=== PATIENT | male | born 1995 | race Caucasian/White ===

== ENCOUNTER 2016-09-05 16:44 | Inpatient (IN) | payer OTHER ==
[~2016-09-05] VITALS: Ht 177.8 cm; Wt 63.1 kg
[2016-09-05 17:11] LABS: HEMATOCRIT 48.9 % (38.0-50.0); MCH 30.4 PG (29.0-34.0); MCHC 34.8 G/DL (30.0-36.0); MCV 87.5 FL (86-99); MEAN PLAT.VOLUME 9.4 uM^3 (9.0-12.4); PLATELET COUNT 380 K/uL (156-360); RBC DIS.WIDTH-CV 12.6 % (11.8-14.6); RBC DIS.WIDTH-SD 40.9 % (39-53); RED BLOOD COUNT 5.59 M/uL (4.00-5.50); WHITE BLOOD COUNT 8.4 K/uL (4.1-10.2)
[2016-09-05 17:40] LABS: CHLORIDE 108 mEq/L (99-109); POTASSIUM 3.6 mEq/L (3.7-5.4); SODIUM 138 mEq/L (136-147)
[2016-09-05 17:42] LABS: GLUCOSE 112 mg/dL (70-99)
[2016-09-05 17:43] LABS: ANION GAP 12 MEQ/L (2-14)
[2016-09-05 17:46] LABS: GFR ESTIMATE (CALCULATED) > 59 mL/min/
[2016-09-05 17:47] LABS: UREA NITROGEN (BUN) 15 mg/dL (9-23)
[2016-09-05 18:31] LABS: ADD MIUA? NO; BILIRUBIN NEGATIVE; BLOOD NEGATIVE; COLOR YELLOW ((YELLOW)); GLUCOSE (STRIP) NEGATIVE; KETONES NEGATIVE; LEUKOCYTES NEGATIVE; NITRITE NEGATIVE; PROTEIN (STRIP) NEGATIVE; SPECIFIC GRAVITY 1.011 (1.000-1.030); UCUL ADDED? NO; UROBILINOGEN 0.2 MG/DL (0.2-1.0)
[2016-09-05 18:37] LABS: AMPHETAMINE NEGATIVE (500 ng/mL); BARBITURATES PRESUMPTIVE POSITIVE (200 ng/mL); BENZODIAZEPINES PRESUMPTIVE POSITIVE (150 ng/mL); COCAINE NEGATIVE (150 ng/mL); INTERNAL CONTROLS VALID? YES; METHADONE NEGATIVE (200 ng/mL); METHAMPHETAMINE NEGATIVE (500 ng/mL); OPIATES (MORPHINE) NEGATIVE (100 ng/mL); OXYCODONE NEGATIVE (100 ng/mL); PHENCYCLIDINE NEGATIVE (25 ng/mL); PROPOXYPHENE NEGATIVE (300 ng/mL); THC CANNABINOIDS PRESUMPTIVE POSITIVE (50 ng/mL); TRICYCLIC ANTIDEPRESSANTS NEGATIVE (300 ng/mL)
[2016-09-05 18:38] LABS: ADD MEDTOX COMMENT Y
[2016-09-05 19:14] LABS: BENZODIAZEPINES QUANT VALUE 0 NG/ML; BENZODIAZEPINES, URINE SCREEN Negative (200 ng/mL)
[2016-09-05] MEDS ORDERED: TOPIRAMATE100 MG PO (20:14)
[2016-09-05] MEDS ORDERED: ONE-A-DAY MEN'1 EACH PO (20:15)
[2016-09-05 20:32] VITALS: BP 140/76
[2016-09-06 08:20] VITALS: BP 125/80
[2016-09-06 15:42] VITALS: BP 127/72
[2016-09-07 07:33] VITALS: BP 133/64
[2016-09-07 15:30] VITALS: BP 142/85
[2016-09-08 08:01] VITALS: BP 133/60
[2016-09-08 16:25] VITALS: BP 133/76
[2016-09-09 07:39] VITALS: BP 149/73
[2016-09-09 15:23] VITALS: BP 140/79
[2016-09-10 08:02] VITALS: BP 137/65
[2016-09-10 15:49] VITALS: BP 146/86
[2016-09-11 07:53] VITALS: BP 124/65
[2016-09-11 15:36] VITALS: BP 156/86
[2016-09-11 20:59] VITALS: BP 138/89
[2016-09-12 07:27] VITALS: BP 123/60
[2016-09-12] MEDS ORDERED: QUETIAPINE FUMA25 MG PO (09:26)
[2016-09-12] MEDS ORDERED: ESCITALOPRAM OX10 MG PO (09:26)
[2016-09-12] MEDS ORDERED: PRAZOSIN HCL1 MG PO (09:26)
== END 2016-09-12 10:22 | disposition home or self-care (01) | DRG 885 ==
LOC: EME 16:44 → EDOF 19:40 → 1WEST 19:40
PROVIDERS: Emergency Medicine
DX: F33.2 Major depressive disorder, recurrent severe without psychotic features (principal); R45.851 Suicidal ideations; G40.909 Epilepsy, unspecified, not intractable, without status epilepticus; G47.00 Insomnia, unspecified; F12.90 Cannabis use, unspecified, uncomplicated; F17.200 Nicotine dependence, unspecified, uncomplicated
CPT/HCPCS: 80048; 81003; 84999; 85027; 90837; 97150 GO; 97165 GO; 99281; 99285; J2060; Q0177